=== PATIENT | female | born 1990 | race Caucasian/White ===

== ENCOUNTER 2017-02-07 09:34 | Inpatient (IN) | payer OTHER ==
[2017-02-07] VITALS (7 sets, daily range): BP systolic 103–128; BP diastolic 55–61
[~2017-02-07] VITALS: Ht 165.1 cm; Wt 107.3 kg
[~2017-02-07 09:34] MED LIST: HEMOCYTE324 MG PO; PRENATAL TABLE1 EAC3 PO
[2017-02-07] MEDS ORDERED: ENDOCET 5-3251 EACH PO (12:31)
[2017-02-07] MEDS ORDERED: IBUPROFEN800 MG PO (12:31)
[2017-02-08 05:00] VITALS: BP 110/65
[2017-02-08 06:59] LABS: EOSINOPHIL (%) 0.5 % (0-5); EOSINOPHIL COUNT 0.1 K/uL (0-0.3); HEMATOCRIT 26.7 % (36.0-46.0); IMMATURE GRANULOCYTE (%) 0.7 % (0.0-0.7); IMMATURE GRANULOCYTE COUNT 0.1 K/uL; INSTRUMENT ABS NEUTROPHIL CT 11.6 K/uL; LYMPHOCYTE COUNT 3.4 K/uL (1.0-2.8); MCH 29.3 PG (29.0-34.0); MCHC 33.3 G/DL (30.0-36.0); MCV 87.8 FL (83-99); MEAN PLAT.VOLUME 10.7 uM^3 (9.5-12.4); MONOCYTE (%) 7.3 % (3-12); MONOCYTE COUNT 1.2 K/uL (0-0.8); NEUTROPHIL (%) 70.6 % (45-76); NEUTROPHIL COUNT 11.6 K/uL (1.8-6.4); PLATELET COUNT 251 K/uL (156-360); RBC DIS.WIDTH-CV 14.6 % (11.8-14.6); RBC DIS.WIDTH-SD 46.4 % (39-53); WHITE BLOOD COUNT 16.5 K/uL (4.1-10.2)
[2017-02-08 07:21] LABS: RED BLOOD COUNT 3.04 M/uL (3.80-5.20)
[2017-02-08 14:55] VITALS: BP 101/57
[2017-02-08 19:00] VITALS: BP 127/69
[2017-02-08 23:00] VITALS: BP 118/71
[2017-02-09 03:00] VITALS: BP 121/70
[2017-02-09 07:42] VITALS: BP 126/72
[2017-02-09 11:00] VITALS: BP 131/77
== END 2017-02-09 14:30 | disposition home or self-care (01) | DRG 765 ==
LOC: 2WEST 09:34 → 2SOUTH 10:19 → 2WEST 02-09 14:30
PROVIDERS: Obstetrics & Gynecology
DX: O34.211 Maternal care for low transverse scar from previous cesarean delivery (principal); O40.3XX0 Polyhydramnios, third trimester, not applicable or unspecified; O99.214 Obesity complicating childbirth; E66.9 Obesity, unspecified; Z3A.39 39 weeks gestation of pregnancy; Z37.0 Single live birth; O99.02 Anemia complicating childbirth; D64.9 Anemia, unspecified; O99.334 Smoking (tobacco) complicating childbirth; F17.210 Nicotine dependence, cigarettes, uncomplicated; Z30.2 Encounter for sterilization
CPT/HCPCS: 36415; 85025; 86900; 86901; 88302; J0690; J1100; J1885; J2274; J2405; J3010; J7120